=== PATIENT | male | born 1965 | race Caucasian/White ===

== ENCOUNTER 2017-10-12 09:35 | Observation (INO) | payer MEDICARE ==
[~2017-10-12] VITALS: Ht 180.3 cm; Wt 90.0 kg
[2017-10-12] VITALS (9 sets, daily range): BP systolic 105–171; BP diastolic 66–93; PULSE 58–120; RESP 16–32; TEMP 97.8–98.6; O2SAT 98–100
[~2017-10-12 09:35] MED LIST: DIAZ10TA PO; HYDR-3533 PO; IBUP400 PO; LEVA500T PO; MS C15TA7 PO; ZOLP10TA3 PO
[2017-10-12] MEDS ORDERED: SODIUM CHLORIDE 0.9% FLUSH 10 ML FLUSH IV FLUSH PRN ×2 (10:15→15:30)
[2017-10-12] MEDS ORDERED: LORazepam 2 MG/ML VIAL IV PUSH ONE (10:15)
[2017-10-12] MEDS ORDERED: SODIUM CHLOR 0.9% 1000 ML INJ 1,000 ML IV ONE ×2 (10:30→14:15)
--- NOTE | 2017-10-12 10:35 | RADRPT ---
EXAM DATE/TIME: 10/12/2017 10:20 [facility] COMPARISON: CHEST SINGLE AP, April 17, 2015, 11:40. INDICATIONS : Syncope. Altered mental status. MEDICAL HISTORY : Non-responsive. SURGICAL HISTORY : Non-responsive. ENCOUNTER: Initial ACUITY: 1 day PAIN SCORE: Non-responsive. LOCATION: Bilateral chest FINDINGS: A single view of the chest demonstrates the lungs to be hypoinflated with mild elevation of the right hemidiaphragm. Lungs are otherwise grossly clear. Accounting for the degree of inspiration, heart si ze is normal. Osseous structures are intact. CONCLUSION: No acute cardiopulmonary process. Jaron Quigley MD on October 12, 2017 at 10:31 Board Certified Radiologist. This report was verified electronically.
[2017-10-12 10:36] LABS: AUTOMATED NEUTROPHIL # 11.8 TH/MM3 (1.8-7.7); BASOPHIL % 0.2 % (0.0-2.0); EOSINOPHIL % 0.1 % (0.0-4.0); HEMATOCRIT 51.9 % (39.0-51.0); HEMOGLOBIN 17.1 GM/DL (13.0-17.0); LYMPH % 20.4 % (9.0-44.0); LYMPHOCYTE # 3.3 TH/MM3 (1.0-4.8); MEAN CELL VOLUME 88.1 FL (80.0-100.0); MEAN CORPUSCULAR HGB CONC 32.9 % (32.0-36.0); MEAN PLATELET VOLUME 9.1 FL (7.0-11.0); MONO % 7.2 % (0.0-8.0); MONOCYTE # 1.2 TH/MM3 (0-0.9); NEUT % 72.1 % (16.0-70.0); PLATELET COUNT 259 TH/MM3 (150-450); RED BLOOD COUNT 5.89 MIL/MM3 (4.50-5.90); RED CELL DISTRIBUTION WIDTH 13.5 % (11.6-17.2); WHITE BLOOD COUNT 16.3 TH/MM3 (4.0-11.0)
[2017-10-12 10:54] LABS: INTERNATIONAL NORMALIZED RATIO 1.1 RATIO; PROTHROMBIN TIME - PATIENT 11.2 SEC (9.8-11.6)
[2017-10-12 11:00] LABS: BACTERIA, URINE OCC /hpf; BLOOD, URINE TRACE (NEG); GLUCOSE,URINE TRACE mg/dL (NEG); HYALINE CAST, URINE 2 /lpf (RARE); KETONE, URINE 40 mg/dL (NEG); NITRITE,URINE NEG (NEG); SQUAMOUS EPITHELIAL CELL URINE 1 /hpf (0-5); URINE COLOR YELLOW (YELLW/STRAW); URINE LEUKOCYTE ESTERASE NEG (NEG)
--- NOTE | 2017-10-12 11:00 | RADRPT ---
EXAM DATE/TIME: 10/12/2017 10:43 [facility] COMPARISON: No previous studies available for comparison. INDICATIONS : Altered mental status. RADIATION DOSE: 52.13 CTDIvol (mGy) MEDICAL HISTORY : Seizures. SURGICAL HISTORY : None. ENCOUNTER: Initial ACUITY: 3 days PAIN SCALE: 0/10 LOCATION: cranial TECHNIQUE: Multiple contiguous axial images were obtained of the head. Using automated exposure control and adj ustment of the mA and/or kV according to patient size, radiation dose was kept as low as reasonably a chievable to obtain optimal diagnostic quality images. DICOM format image data is available electro nically for review and comparison. FINDINGS: CEREBRUM: The ventricles are normal for age. No evidence of midline shift, mass lesion, hemorrhage or acute in farction. No extra-axial fluid collections are seen. POSTERIOR FOSSA: The cerebellum and brainstem are intact. The 4th ventricle is midline. The cerebellopontine angle i s unremarkable. EXTRACRANIAL: The visualized portion of the orbits is intact. SKULL: The calvaria is intact. No evidence of skull fracture. CONCLUSION: Negative for acute process Xavier Sandoval MD FACR on October 12, 2017 at 10:57 Board Certified Radiologist. This report was verified electronically.
[2017-10-12 11:01] LABS: ALBUMIN 4.6 GM/DL (3.4-5.0); AST (GOT) 21 U/L (15-37); BICARBONATE 17.8 MEQ/L (21.0-32.0); BLOOD UREA NITROGEN 25 MG/DL (7-18); CALCIUM 9.3 MG/DL (8.5-10.1); CHLORIDE 102 MEQ/L (98-107); CREATININE 2.15 MG/DL (0.60-1.30); GLOMERULAR FILTRATION RATE 33 ML/MIN (>89); GLUCOSE,RANDOM 168 MG/DL (74-106); SODIUM (NA) 141 MEQ/L (136-145)
[2017-10-12 11:06] LABS: ALKALINE PHOSPHATASE 82 U/L (45-117); ALT (GPT) 41 U/L (12-78); TOTAL PROTEIN 8.1 GM/DL (6.4-8.2); TROPONIN I LESS THAN 0.02 NG/ML (0.02-0.05)
[2017-10-12 11:11] LABS: BILIRUBIN, URINE NEG (NEG)
[2017-10-12 11:18] LABS: ACETAMINOPHEN LESS THAN 2.0 MCG/ML (10.0-30.0)
--- NOTE | 2017-10-12 14:06 | PD ---
HPI Chief Complaint: Altered Mental Status Time Seen by Provider: 10:15 Travel History International Travel<30 days: No Contact w/Intl Traveler<30days: No Traveled to known affect area: No History of Present Illness HPI Patient was brought in by EMS secondary to altered mental status. states that he has been altered for the past couple days and he has a history of such per EMS. Upon my initial assessment patient was not talking. However, I am able to get history from the patient. States that he took morphine pills a couple of nights ago is also taking Valium and Xanax. States that for the past few days he has had problems sleeping and they have just changed his antidepressant medication. He denies fever, chills, nausea, vomiting, headache , neck pain, rash, chest pain, shortness of breath, abdominal pain. PFSH Past Medical History ADHD: Yes Bipolar Disorder: Yes Diminished Hearing: Yes (RIGHT EAR DEAF) Psychiatric: Yes (ADHD/ BIPOLAR) Respiratory: Yes (PE) Immunizations Current: No Seizures: Yes ?: Not Past Surgical History Genitourinary Surgery: Yes (PENILE SURGERY X - FOR CHRONIC PRIAPISM) Tonsillectomy: Yes Social History Alcohol Use: Yes (OCCASIONAL) Tobacco Use: Yes (1 PPD) Substance Use: No (unable to assess) Allergies-Medications (Allergen,Severity, Reaction): Coded Allergies: Iodinated Contrast- Oral and IV Dye (Unverified Allergy, Severe, RASH, ) gabapentin (Unverified Allergy, Severe, Seizures, 01/13/17) trazodone (Unverified Allergy, Severe, PRIAPRISM, 01/13/17) Reported Meds & Prescriptions Reported Meds & Active Scripts Active Motrin 400 mg Tab (Ibuprofen) 400 Mg Tab 400 Mg PO Q8 PRN Levaquin 500 Mg Tab (Levofloxacin) 500 Mg Tab 500 Mg PO DAILY Reported Ambien 10 Mg Tab (Zolpidem Tartrate) 10 Mg Tab 10 Mg PO HS Diazepam 10 mg (Diazepam) 10 Mg Tab 1 Tab PO TID Lortab 5 mg/325 mg (Hydrocodone/Acetaminophen 5 mg/325 mg) 1 Tab 1 Tab PO TID Ms Contin (Morphine Sulfate) 15 Mg Tab 15 Mg PO Q8H Review of Systems Except as stated in HPI: all other systems reviewed are Neg Physical Exam Narrative GENERAL: No acute distress. SKIN: Focused skin assessment warm/dry. HEAD: Atraumatic. Normocephalic. EYES: Pupils equal and round. Extra ocular muscles intact bilaterally. No scleral icterus. No injection or drainage. ENT: No nasal bleeding or discharge. Mucous membranes pink and moist. NECK: Trachea midline. No JVD. CARDIOVASCULAR: Regular rate and rhythm. No murmur appreciated. RESPIRATORY: No accessory muscle use. Clear to auscultation. Breath sounds equal bilaterally. GASTROINTESTINAL: Abdomen soft, non-tender, nondistended. Hepatic and splenic margins not palpable. MUSCULOSKELETAL: No obvious deformities. No clubbing. No cyanosis. No edema. NEUROLOGICAL: Awake and alert. No obvious cranial nerve deficits. Motor grossly within normal limits. Normal speech. Oriented to person and time, but not to place. PSYCHIATRIC: Pressured speech. Data Data Last Documented VS Vital Signs Date Time Temp Pulse Resp B/P (MAP) Pulse Ox O2 Delivery O2 Flow Rate FiO2 10/12/17 14:31 69 32 144/93 (110) 98 Room Air 10/12/17 11:24 2.00 10/12/17 10:01 98.2 Orders Orders Electrocardiogram (10/12/17 10:15) Complete Blood Count With Diff (10/12/17 10:15) Comprehensive Metabolic Panel (10/12/17 10:15) Creatine Kinase (Cpk) (10/12/17 10:15) Prothrombin Time / Inr (Pt) (10/12/17 10:15) Act Partial Throm Time (Ptt) (10/12/17 10:15) Troponin I (10/12/17 10:15) Urinalysis - C+S If Indicated (10/12/17 10:15) Chest, Single Ap (10/12/17 10:15) Ct Brain W/O Iv Contrast(Rout) (10/12/17 10:15) Ecg Monitoring (10/12/17 10:15) Iv Access Insert/Monitor (10/12/17 10:15) Oximetry (10/12/17 10:15) Sodium Chloride 0.9% Flush (Ns Flush) (10/12/17 10:15) Drug Screen, Random Urine (10/12/17 10:15) Alcohol (Ethanol) (10/12/17 10:15) Tylenol (Acetaminophen) (10/12/17 10:15) Salicylates (Aspirin) (10/12/17 10:15) Ckmb (Isoenzyme) Profile (10/12/17 10:15) Lorazepam Inj (Ativan Inj) (10/12/17 10:15) Sodium Chlor 0.9% 1000 Ml Inj (Ns 1000 M (10/12/17 10:30) Urine Culture (10/12/17 10:24) Lactic Acid (10/12/17 14:06) Sodium Chlor 0.9% 1000 Ml Inj (Ns 1000 M (10/12/17 14:15) Restraints Violent (10/12/17 14:06) Admit Order (Ed Use Only) (10/12/17 15:15) Labs Laboratory Tests Test 10/12/17 10:24 10/12/17 14:30 White Blood Count 16.3 TH/MM3 Red Blood Count 5.89 MIL/MM3 Hemoglobin 17.1 GM/DL Hematocrit 51.9 % Mean Corpuscular Volume 88.1 FL Mean Corpuscular Hemoglobin 29.0 PG Mean Corpuscular Hemoglobin Concent 32.9 % Red Cell Distribution Width 13.5 % Platelet Count 259 TH/MM3 Mean Platelet Volume 9.1 FL Neutrophils (%) (Auto) 72.1 % Lymphocytes (%) (Auto) 20.4 % Monocytes (%) (Auto) 7.2 % Eosinophils (%) (Auto) 0.1 % Basophils (%) (Auto) 0.2 % Neutrophils # (Auto) 11.8 TH/MM3 Lymphocytes # (Auto) 3.3 TH/MM3 Monocytes # (Auto) 1.2 TH/MM3 Eosinophils # (Auto) 0.0 TH/MM3 Basophils # (Auto) 0.0 TH/MM3 CBC Comment DIFF FINAL Differential Comment Prothrombin Time 11.2 SEC Prothromb Time International Ratio 1.1 RATIO Activated Partial Thromboplast Time 20.3 SEC Urine Color YELLOW Urine Turbidity HAZY Urine pH 6.0 Urine Specific [place] 1.030 Urine Protein 30 mg/dL Urine Glucose (UA) TRACE mg/dL Urine Ketones 40 mg/dL Urine Occult Blood TRACE Urine Nitrite NEG Urine Bilirubin NEG Urine Urobilinogen 2.0 MG/DL Urine Leukocyte Esterase NEG Urine RBC 1 /hpf Urine WBC 2 /hpf Urine Squamous Epithelial Cells 1 /hpf Urine Bacteria OCC /hpf Urine Hyaline Casts 2 /lpf Microscopic Urinalysis Comment CATH-CULTURE IND Blood Urea Nitrogen 25 MG/DL Creatinine 2.15 MG/DL Random Glucose 168 MG/DL Total Protein 8.1 GM/DL Albumin 4.6 GM/DL Calcium Level 9.3 MG/DL Alkaline Phosphatase 82 U/L Aspartate Amino Transf (AST/SGOT) 21 U/L Alanine Aminotransferase (ALT/SGPT) 41 U/L Total Bilirubin 1.0 MG/DL Sodium Level 141 MEQ/L Potassium Level 3.9 MEQ/L Chloride Level 102 MEQ/L Carbon Dioxide Level 17.8 MEQ/L Anion Gap 21 MEQ/L Estimat Glomerular Filtration Rate 33 ML/MIN Total Creatine Kinase 57 U/L Troponin I LESS THAN 0.02 NG/ML Salicylates Level 4.6 MG/DL Urine Opiates Screen POS Acetaminophen Level LESS THAN 2.0 MCG/ML Urine Barbiturates Screen NEG Urine Amphetamines Screen NEG Urine Benzodiazepines Screen NEG Urine Cocaine Screen NEG Urine Cannabinoids Screen POS Ethyl Alcohol Level LESS THAN 3 MG/DL Lactic Acid Level 1.6 mmol/L MDM Medical Decision Making Medical Screen Exam Complete: Yes Emergency Medical Condition: Yes Interpretation(s) Lab: Urine positive for bacteria culture pending; elevated white count; elevated BUN/creatinine/anion gap; decreased CO2 ECG: Sinus rhythm, rate 80, T-wave inversion in 3 and aVF Last Impressions Head CT 10/12/17 1015 Signed Impressions: Service Date/Time: Thursday, October 12, 2017 10:43 - CONCLUSION: Negative for acute process Xavier Sandoval MD FACR Chest X-Ray 10/12/17 1015 Signed Impressions: Service Date/Time: Thursday, October 12, 2017 10:20 - CONCLUSION: No acute cardiopulmonary process. Jaron Quigley MD Differential Diagnosis Drug/alcohol intoxication, intracranial abnormality, psychiatric disorder Narrative Course He presents to the emergency department with altered mental status. We will check head CT, chest x-ray, EKG, enzymes, UA, UDS, CBC, chemistry, salicylate, acetaminophen. 1500: bp 152/69, patient resting comfortably. Diagnosis Primary Impression: Altered mental status Qualified Codes: R41.82 - Altered mental status, unspecified Additional Impression: Renal failure Qualified Codes: N17.9 - Acute kidney failure, unspecified Admitting Information Admitting Physician Requests: Observation Condition: Stable Shira Cameron MD October 12, 2017 14:06
[2017-10-12] MEDS ORDERED: ONDANSETRON HCL 4 MG/2 ML VIAL IVP PRN (15:30)
[2017-10-12] MEDS ORDERED: ACETAMINOPHEN 325 MG TAB PO PRN (15:30)
[2017-10-12] MEDS ORDERED: NALOXONE HCL 0.4 MG/ML AMP IV PUSH PRN (15:30)
[2017-10-12] MEDS ORDERED: MAGNESIUM HYDROXIDE SUSP 30 ML CUP PO PRN (15:30)
[2017-10-12] MEDS ORDERED: ASPI-516 CHEW (15:35)
[2017-10-12] MEDS ORDERED: MORP1TAB24 PO (15:35)
[2017-10-12] MEDS ORDERED: HYDR-3288 PO (15:35)
[2017-10-12] MEDS ORDERED: METF1000 PO (15:35)
[2017-10-12] MEDS ORDERED: ALPR1TAB3 PO (15:35)
[2017-10-12] MEDS ORDERED: ROSU1TAB8 PO (15:35)
[2017-10-12] MEDS ORDERED: LOSA100T3 PO (15:35)
[2017-10-12] MEDS ORDERED: AMBI10TA PO (15:35)
[2017-10-12] MEDS ORDERED: ALPRAZolam 1 MG TAB PO PRN (15:45)
[2017-10-12] MEDS ORDERED: DEXTROSE 50% IN WATER 50 ML VIAL(D50) IV PUSH PRN (15:45)
[2017-10-12] MEDS ORDERED: GLUCAGON 1 MG/ML VIAL OTHER PRN (15:45)
[2017-10-12] MEDS ORDERED: ONDANSETRON ODT 4 MG TAB PO PRN (15:45)
[2017-10-12] MEDS ORDERED: SODIUM CHLOR 0.9% 1000 ML INJ 1,000 ML IV SCH (16:00)
--- NOTE | 2017-10-12 16:55 | HHI.HP ---
HPI Service CP Hospitalists Primary Care Physician Unknown Admission Diagnosis altered mental status, renal failure Chief Complaint: Patient does not know why he is here. AMS Travel History International Travel<30 Days: No Contact w/Intl Traveler <30 Da: No Traveled to Known Affected Are: No History of Present Illness Patient has a past medical history which includes: HTN, Hyperlipidemia, DM type 2, tobacco dependance, bipolar, priapism after taking Trazodone in 1996 s/p penile surgery x 19 and opioid dependance. Patient is a poor historian and is unable to tell us why he is here. Patient reports he has not been taking his morphine as prescribed. Patient reports he stopped taking morphine 1 weeks ago. Patient is prescribed Morphine ER 30 mg PO Q8H. Patient also reports he has not been taking his Alprazolam for the past few days. Information gathered from patient as well as review from prior charting. Patient able to provide his name correctly. Patient thinks he is in [facility] also unable to tell the correct date or year. Patient is unsure of how he got here. Patient reports he has been unable to sleep for the past 7 days. Patient c/o blood in urine. Patient endorses constipation. Patient has not been eating or drinking much for the past few days. Patient denies N/V, SOB, cough, congestion, chest pain, fevers, chills or dysuria. Review of Systems ROS Limitations: Clinical Condition, Altered Mental Status, Poor Historian Past Family Social History Past Medical History HTN, Hyperlipidemia, DM type 2, tobacco dependance, bipolar and opioid dependance Past Surgical History Penile surgery x 19 in the past Implanted intrathecal pain pump placement and removal Reported Medications Ambien (Zolpidem Tartrate) 10 Mg Tab 10 Mg PO HS PRN Rosuvastatin (Rosuvastatin Calcium) 20 Mg Tab 20 Mg PO DAILY Morphine ER (Morphine Sulfate) 15 Mg Tab 30 Mg PO Q8H, reports he has not taken in 1 week Metformin (Metformin HCl) 1,000 Mg Tab 1,000 Mg PO DAILY With a meal Losartan-Hydrochlorothiazide 100-12.5 Mg Tab 1 Tab PO DAILY [place] (Hydrocodone-Acetaminophen) 7.5-325 mg Tab 1 Tab PO Q6H PRN Aspirin 81 Mg Chew 81 Mg CHEW DAILY Alprazolam 1 Mg Tab 1 Mg PO Q6H PRN - reports he has not taking as prescribed, has not taken in 2-3 days Allergies: Coded Allergies: Iodinated Contrast- Oral and IV Dye (Unverified Allergy, Severe, RASH, ) gabapentin (Unverified Allergy, Severe, Seizures, 01/13/17) trazodone (Unverified Allergy, Severe, PRIAPRISM, 01/13/17) Family History Family history includes ADD Social History lives with his mother smokes 1/2 PPD Physical Exam Vital Signs Vital Signs Date Time Temp Pulse Resp B/P (MAP) Pulse Ox O2 Delivery O2 Flow Rate FiO2 10/12/17 15:37 21 10/12/17 14:31 69 32 144/93 (110) 98 Room Air 10/12/17 12:43 88 18 140/84 (102) 100 Room Air 10/12/17 11:24 97 18 135/77 (96) 100 Nasal Cannula 2.00 10/12/17 10:35 126 26 97 Room Air 10/12/17 10:34 94 18 105/66 (79) 98 Nasal Cannula 2.00 10/12/17 10:32 18 98 Nasal Cannula 2.00 10/12/17 10:01 98.2 120 30 98 Room Air Physical Exam GENERAL: This is a 51 year old male patient who appears confused with a flight of ideas SKIN: dry mucous membranes and dry skin. HEAD: abrasion right side of face EYES: Extraocular motions intact. No scleral icterus. No injection or drainage. CARDIOVASCULAR: Regular rate and rhythm RESPIRATORY: Clear to auscultation. Breath sounds equal bilaterally. No wheezes , rales, or rhonchi. GASTROINTESTINAL: Abdomen soft, non-tender, nondistended. No hepato-splenomegaly , or palpable masses. No guarding. MUSCULOSKELETAL: Extremities without clubbing, cyanosis, or edema. No joint tenderness, effusion, or edema noted. No calf tenderness. Negative Homans sign bilaterally. NEUROLOGICAL: Awake and alert. No focal deficits. Motor and sensory grossly within normal limits. Tangential speech Laboratory Laboratory Tests Test 10/12/17 10:24 10/12/17 14:30 White Blood Count 16.3 Red Blood Count 5.89 Hemoglobin 17.1 Hematocrit 51.9 Mean Corpuscular Volume 88.1 Mean Corpuscular Hemoglobin 29.0 Mean Corpuscular Hemoglobin Concent 32.9 Red Cell Distribution Width 13.5 Platelet Count 259 Mean Platelet Volume 9.1 Neutrophils (%) (Auto) 72.1 Lymphocytes (%) (Auto) 20.4 Monocytes (%) (Auto) 7.2 Eosinophils (%) (Auto) 0.1 Basophils (%) (Auto) 0.2 Neutrophils # (Auto) 11.8 Lymphocytes # (Auto) 3.3 Monocytes # (Auto) 1.2 Eosinophils # (Auto) 0.0 Basophils # (Auto) 0.0 CBC Comment DIFF FINAL Differential Comment Prothrombin Time 11.2 Prothromb Time International Ratio 1.1 Activated Partial Thromboplast Time 20.3 Urine Color YELLOW Urine Turbidity HAZY Urine pH 6.0 Urine Specific [place] 1.030 Urine Protein 30 Urine Glucose (UA) TRACE Urine Ketones 40 Urine Occult Blood TRACE Urine Nitrite NEG Urine Bilirubin NEG Urine Urobilinogen 2.0 Urine Leukocyte Esterase NEG Urine RBC 1 Urine WBC 2 Urine Squamous Epithelial Cells 1 Urine Bacteria OCC Urine Hyaline Casts 2 Microscopic Urinalysis Comment CATH-CULTURE IND Blood Urea Nitrogen 25 Creatinine 2.15 Random Glucose 168 Total Protein 8.1 Albumin 4.6 Calcium Level 9.3 Alkaline Phosphatase 82 Aspartate Amino Transf (AST/SGOT) 21 Alanine Aminotransferase (ALT/SGPT) 41 Total Bilirubin 1.0 Sodium Level 141 Potassium Level 3.9 Chloride Level 102 Carbon Dioxide Level 17.8 Anion Gap 21 Estimat Glomerular Filtration Rate 33 Total Creatine Kinase 57 Troponin I LESS THAN 0.02 Salicylates Level 4.6 Urine Opiates Screen POS Acetaminophen Level LESS THAN 2.0 Urine Barbiturates Screen NEG Urine Amphetamines Screen NEG Urine Benzodiazepines Screen NEG Urine Cocaine Screen NEG Urine Cannabinoids Screen POS Ethyl Alcohol Level LESS THAN 3 Lactic Acid Level 1.6 Date/Time Source Procedure Growth Status 10/12/17 10:24 Urine Catheterized Urine Urine Culture Pending Received Result Diagram: 10/12/17 1024 10/12/17 1024 Imaging Last Impressions Head CT 10/12/17 1015 Signed Impressions: Service Date/Time: Thursday, October 12, 2017 10:43 - CONCLUSION: Negative for acute process Xavier Sandoval MD FACR Chest X-Ray 10/12/17 1015 Signed Impressions: Service Date/Time: Thursday, October 12, 2017 10:20 - CONCLUSION: No acute cardiopulmonary process. MD Dania Ramirezi VTE Risk Assessment Rocio VTE Risk Assessment: No/Low Risk (score <= 1) Caprini Risk Assessment Model Point Value = 1 Point Value = 2 Point Value = 3 Point Value = 5 Age 41-60 Minor surgery BMI > 25 kg/m2 Swollen legs Varicose veins or History of unexplained or recurrent spontaneous Oral contraceptives or hormone replacement Sepsis (< 1 month) Serious lung disease, including pneumonia (< 1 month) Abnormal pulmonary function Acute myocardial infarction Congestive heart failure (< 1 month) History of inflammatory bowel disease Medical patient at bed rest Age 61-74 Arthroscopic surgery Major open surgery (> 45 min) Laparoscopic surgery (> 45 min) Malignancy Confined to bed (> 72 hours) Immobilizing plaster cast Central venous access Age >= 75 History of VTE Family history of VTE Factor V Leiden Prothrombin [id number] Lupus anticoagulant Anticardiolipin antibodies Elevated serum homocysteine Heparin-induced thrombocytopenia Other congenital or acquired thrombophilia Stroke (< 1 month) Elective arthroplasty Hip, pelvis, or leg fracture Acute spinal cord injury (< 1 month) Prophylaxis Regimen Total Risk Factor Score Risk Level Prophylaxis Regimen 0-1 Low Early ambulation 2 Moderate Order ONE of the following: *Sequential Compression Device (SCD) *Heparin 5000 units SQ BID 3-4 Higher Order ONE of the following medications: *Heparin 5000 units SQ TID *Enoxaparin/Lovenox 40 mg SQ daily (WT < 150 kg, CrCl > 30 mL/min) *Enoxaparin/Lovenox 30 mg SQ daily (WT < 150 kg, CrCl > 10-29 mL/min) *Enoxaparin/Lovenox 30 mg SQ BID (WT < 150 kg, CrCl > 30 mL/min) AND/OR *Sequential Compression Device (SCD) 5 or more Highest Order ONE of the following medications: *Heparin 5000 units SQ TID (Preferred with Epidurals) *Enoxaparin/Lovenox 40 mg SQ daily (WT < 150 kg, CrCl > 30 mL/min) *Enoxaparin/Lovenox 30 mg SQ daily (WT < 150 kg, CrCl > 10-29 mL/min) *Enoxaparin/Lovenox 30 mg SQ BID (WT < 150 kg, CrCl > 30 mL/min) AND *Sequential Compression Device (SCD) Assessment and Plan Problem List: (1) Altered mental status ICD Codes: R41.82 - Altered mental status, unspecified Status: Acute Plan: Altered mental status Patient has a past medical history which includes: HTN, Hyperlipidemia, DM type 2, tobacco dependance, bipolar, priapism after taking Trazodone in 1996 s/p penile surgery x 19 and opioid dependance. Patient is a poor historian and is unable to tell us why he is here. Patient reports he has not been taking his morphine as prescribed. Patient reports he stopped taking morphine 1 weeks ago. Patient is prescribed Morphine ER 30 mg PO Q8H. Patient also reports he has not been taking his Alprazolam for the past few days. Information gathered from patient as well as review from prior charting. Patient able to provide his name correctly. Patient thinks he is in [facility] also unable to tell the correct date or year. Patient is unsure of how he got here. Patient reports he has been unable to sleep for the past 7 days. Patient c/o blood in urine. Patient endorses constipation. Patient has not been eating or drinking much for the past few days. Patient denies N/V, SOB, cough, congestion, chest pain, fevers, chills or dysuria. Patient currently confused with tangental speech Patient reports he has not been taking his morphine as prescribed. Patient reports he stopped taking morphine 1 weeks ago. Patient is prescribed Morphine ER 30 mg PO Q8H. Patient also reports he has not been taking his Alprazolam for the past few days CT head: Negative for acute process Patient has abrasion on the right side of his face EEG Ativan as needed for seizure activity CXR : No acute cardiopulmonary disease Blood for Ammonia, B12, folate, Thiamin, RPR, TSH, free T4 continuous cardiac telemetry Consult psych Renal failure Patient endorses poor PO intake clinically dehydrated IVF Hold nephrotoxic agents ( hold metformin, Losartan and HCTZ) recheck BMP in AM Opioid dependence Patient prescribed Morphine 30 mg Po Q8H but reports he has not taken as prescribed. Patient reports he has not taken Morphine in 1 week Denies pain at this time Morphine ER 15 mg PO BID Diabetes mellitus Hold Metformin due to [place] diabetic diet Accu checks ACHS with SSI HTN (hypertension) hold Losartan and HCTZ do to [place] clonidine as needed Hyperlipidemia Continue patient's home Statin Bipolar disorder, unspecified Patient reports he has not been taking his medications as prescribed Consult psych for assistance DVT prophylaxis with SCDs (2) Renal failure ICD Codes: N19 - Unspecified kidney failure Status: Acute (3) Opioid dependence ICD Codes: F11.20 - Opioid dependence, uncomplicated (4) Diabetes mellitus ICD Codes: E11.9 - Type 2 diabetes mellitus without complications (5) HTN (hypertension) ICD Codes: I10 - Essential (primary) hypertension (6) Hyperlipidemia ICD Codes: E78.5 - Hyperlipidemia, unspecified (7) Bipolar disorder, unspecified ICD Codes: F31.9 - Bipolar disorder, unspecified Assessment and Plan Patient examined. Assessment and plan formulated with Jolene Wood PA-C. I agree with the above. Pt had period of loc. might have had a seizure. he admits to suddenly stopping his narcotics and benzos. uds neg for benzos. after given benzos in ED his agitation and combative nature stopped. he has some disorganized thinking. will ask psychiatry to visit him. will resume pain meds and anxiolytics at lower doses. He has [place] due poor po intake and vomiting. will give ivf and recheck. Problem Qualifiers (1) Altered mental status: Qualified Codes: R41.82 - Altered mental status, unspecified (2) Renal failure: Qualified Codes: N17.9 - Acute kidney failure, unspecified Jolene Wood October 12, 2017 16:55 Pedro Blandon MD October 12, 2017 21:40
[2017-10-12] MEDS: INSULIN ASPART SUPPLEMENTAL SCALE SQ SCH ×2 (17:00→21:00)
[2017-10-12] MEDS ORDERED: cloNIDine HCL 0.1 MG TAB PO PRN (17:15)
[2017-10-12] MEDS ORDERED: LORazepam 2 MG/ML VIAL IV PUSH PRN (17:15)
[2017-10-12] MEDS: MORPHINE SULFATE 15 MG CONTROLLED RELEASE TAB PO SCH (20:14)
[2017-10-12] MEDS: SODIUM CHLORIDE 0.9% FLUSH 10 ML FLUSH IV FLUSH SCH (20:15)
[2017-10-12] MEDS: DOCUSATE SODIUM 50 MG/SENNA 8.6 MG TAB PO SCH (20:15)
[2017-10-12 22:22] LABS: FOLATE GREATER THAN 20.0 NG/ML (3.1-17.5)
[2017-10-13 00:14] VITALS: BP 116/83; PULSE 64; RESP 16; TEMP 99; O2SAT 94
[2017-10-13 00:35] VITALS: PULSE 63
[2017-10-13 04:10] VITALS: BP 132/87; PULSE 56; PULSE 68; RESP 16; TEMP 98.5; O2SAT 97
[2017-10-13 07:06] LABS: AUTOMATED NEUTROPHIL # 6.9 TH/MM3 (1.8-7.7); BASOPHIL % 0.3 % (0.0-2.0); EOSINOPHIL # 0.1 TH/MM3 (0-0.4); EOSINOPHIL % 0.8 % (0.0-4.0); HEMATOCRIT 43.5 % (39.0-51.0); HEMOGLOBIN 14.6 GM/DL (13.0-17.0); LYMPH % 28.9 % (9.0-44.0); LYMPHOCYTE # 3.2 TH/MM3 (1.0-4.8); MEAN CELL VOLUME 86.8 FL (80.0-100.0); MEAN CORPUSCULAR HEMOGLOBIN 29.2 PG (27.0-34.0); MEAN CORPUSCULAR HGB CONC 33.6 % (32.0-36.0); MEAN PLATELET VOLUME 8.9 FL (7.0-11.0); MONO % 6.5 % (0.0-8.0); MONOCYTE # 0.7 TH/MM3 (0-0.9); NEUT % 63.5 % (16.0-70.0); PLATELET COUNT 185 TH/MM3 (150-450); RED BLOOD COUNT 5.02 MIL/MM3 (4.50-5.90); RED CELL DISTRIBUTION WIDTH 13.6 % (11.6-17.2); WHITE BLOOD COUNT 10.9 TH/MM3 (4.0-11.0)
[2017-10-13 07:19] VITALS: BP 135/75; PULSE 54; RESP 18; TEMP 98.3; O2SAT 96
[2017-10-13] MEDS: INSULIN ASPART SUPPLEMENTAL SCALE SQ SCH ×2 (07:58→12:00)
[2017-10-13 08:08] LABS: CREATININE 0.81 MG/DL (0.60-1.30)
[2017-10-13 08:09] LABS: BICARBONATE 21.7 MEQ/L (21.0-32.0); CALCIUM 7.7 MG/DL (8.5-10.1)
[2017-10-13] MEDS: SODIUM CHLORIDE 0.9% FLUSH 10 ML FLUSH IV FLUSH SCH (08:18)
[2017-10-13] MEDS: MORPHINE SULFATE 15 MG CONTROLLED RELEASE TAB PO SCH (08:19)
[2017-10-13] MEDS: DOCUSATE SODIUM 50 MG/SENNA 8.6 MG TAB PO SCH (08:19)
[2017-10-13] MEDS ORDERED: POTASSIUM CHLORIDE 20 MEQ CONTROLLED RELEASE TAB PO ONE (09:00)
[2017-10-13] MEDS ORDERED: ATORVASTATIN 40 MG TAB PO SCH (09:00)
[2017-10-13] MEDS ORDERED: ASPIRIN 81 MG CHEW TAB CHEW SCH (09:00)
--- NOTE | 2017-10-13 09:11 | HHI.PR ---
Subjective Remarks Patient A&O x 3 this AM offers no complaints asking when he will be able to go home Objective Vitals Vital Signs Date Time Temp Pulse Resp B/P (MAP) Pulse Ox O2 Delivery O2 Flow Rate FiO2 10/13/17 07:19 98.3 54 18 135/75 (95) 96 10/13/17 04:10 98.5 68 16 132/87 (102) 97 10/13/17 04:10 56 10/13/17 00:35 63 10/13/17 00:14 99.0 64 16 116/83 (94) 94 10/12/17 20:07 58 10/12/17 20:03 98.6 64 16 171/92 (118) 98 10/12/17 19:41 21 10/12/17 17:12 97.8 66 16 145/93 (110) 98 10/12/17 16:35 (110) 2.00 21 10/12/17 16:21 (110) 2.00 21 10/12/17 15:37 21 10/12/17 14:31 69 32 144/93 (110) 98 Room Air 10/12/17 12:43 88 18 140/84 (102) 100 Room Air 10/12/17 11:24 97 18 135/77 (96) 100 Nasal Cannula 2.00 10/12/17 10:35 126 26 97 Room Air 10/12/17 10:34 94 18 105/66 (79) 98 Nasal Cannula 2.00 10/12/17 10:32 18 98 Nasal Cannula 2.00 10/12/17 10:01 98.2 120 30 98 Room Air Result Diagram: 10/13/17 0600 10/13/17 0600 Other Results Laboratory Tests Test 10/12/17 10:24 10/12/17 14:30 10/12/17 22:15 10/13/17 06:00 White Blood Count 16.3 TH/MM3 10.9 TH/MM3 Red Blood Count 5.89 MIL/MM3 5.02 MIL/MM3 Hemoglobin 17.1 GM/DL 14.6 GM/DL Hematocrit 51.9 % 43.5 % Mean Corpuscular Volume 88.1 FL 86.8 FL Mean Corpuscular Hemoglobin 29.0 PG 29.2 PG Mean Corpuscular Hemoglobin Concent 32.9 % 33.6 % Red Cell Distribution Width 13.5 % 13.6 % Platelet Count 259 TH/MM3 185 TH/MM3 Mean Platelet Volume 9.1 FL 8.9 FL Neutrophils (%) (Auto) 72.1 % 63.5 % Lymphocytes (%) (Auto) 20.4 % 28.9 % Monocytes (%) (Auto) 7.2 % 6.5 % Eosinophils (%) (Auto) 0.1 % 0.8 % Basophils (%) (Auto) 0.2 % 0.3 % Neutrophils # (Auto) 11.8 TH/MM3 6.9 TH/MM3 Lymphocytes # (Auto) 3.3 TH/MM3 3.2 TH/MM3 Monocytes # (Auto) 1.2 TH/MM3 0.7 TH/MM3 Eosinophils # (Auto) 0.0 TH/MM3 0.1 TH/MM3 Basophils # (Auto) 0.0 TH/MM3 0.0 TH/MM3 CBC Comment DIFF FINAL DIFF FINAL Differential Comment Prothrombin Time 11.2 SEC Prothromb Time International Ratio 1.1 RATIO Activated Partial Thromboplast Time 20.3 SEC Urine Color YELLOW Urine Turbidity HAZY Urine pH 6.0 Urine Specific [place] 1.030 Urine Protein 30 mg/dL Urine Glucose (UA) TRACE mg/dL Urine Ketones 40 mg/dL Urine Occult Blood TRACE Urine Nitrite NEG Urine Bilirubin NEG Urine Urobilinogen 2.0 MG/DL Urine Leukocyte Esterase NEG Urine RBC 1 /hpf Urine WBC 2 /hpf Urine Squamous Epithelial Cells 1 /hpf Urine Bacteria OCC /hpf Urine Hyaline Casts 2 /lpf Microscopic Urinalysis Comment CATH-CULTURE IND Blood Urea Nitrogen 25 MG/DL 23 MG/DL Creatinine 2.15 MG/DL 0.81 MG/DL Random Glucose 168 MG/DL 123 MG/DL Total Protein 8.1 GM/DL Albumin 4.6 GM/DL Calcium Level 9.3 MG/DL 7.7 MG/DL Alkaline Phosphatase 82 U/L Aspartate Amino Transf (AST/SGOT) 21 U/L Alanine Aminotransferase (ALT/SGPT) 41 U/L Total Bilirubin 1.0 MG/DL Sodium Level 141 MEQ/L 142 MEQ/L Potassium Level 3.9 MEQ/L 3.0 MEQ/L Chloride Level 102 MEQ/L 110 MEQ/L Carbon Dioxide Level 17.8 MEQ/L 21.7 MEQ/L Anion Gap 21 MEQ/L 10 MEQ/L Estimat Glomerular Filtration Rate 33 ML/MIN 100 ML/MIN Total Creatine Kinase 57 U/L Troponin I LESS THAN 0.02 NG/ML Vitamin B12 Level 384 PG/ML Folate GREATER THAN 20.0 NG/ML Free Thyroxine 1.40 NG/DL Thyroid Stimulating Hormone 3rd Gen 3.920 uIU/ML Salicylates Level 4.6 MG/DL Urine Opiates Screen POS Acetaminophen Level LESS THAN 2.0 MCG/ML Urine Barbiturates Screen NEG Urine Amphetamines Screen NEG Urine Benzodiazepines Screen NEG Urine Cocaine Screen NEG Urine Cannabinoids Screen POS Ethyl Alcohol Level LESS THAN 3 MG/DL Lactic Acid Level 1.6 mmol/L Ammonia 32 MCMOL/L Imaging Last Impressions Head CT 10/12/17 1015 Signed Impressions: Service Date/Time: Thursday, October 12, 2017 10:43 - CONCLUSION: Negative for acute process Xavier Sandoval MD FACR Chest X-Ray 10/12/17 1015 Signed Impressions: Service Date/Time: Thursday, October 12, 2017 10:20 - CONCLUSION: No acute cardiopulmonary process. Jaron Quigley MD Objective Remarks GENERAL: This is a well-nourished, well-developed patient, in no apparent distress. CARDIOVASCULAR: Regular rate and rhythm RESPIRATORY: Clear to auscultation. Breath sounds equal bilaterally. GASTROINTESTINAL: Abdomen soft, non-tender, nondistended. Normal active bowel sounds MUSCULOSKELETAL: Extremities without clubbing, cyanosis, or edema. NEURO: Alert & Oriented. Moves all ext x4 A/P Problem List: (1) Altered mental status ICD Codes: R41.82 - Altered mental status, unspecified Status: Acute Plan: Altered mental status- improved AMS likely secondary to withdraw from Morphine and Xanax - improved Patient has a past medical history which includes: HTN, Hyperlipidemia, DM type 2, tobacco dependance, bipolar, priapism after taking Trazodone in 1996 s/p penile surgery x 19 and opioid dependance. Patient is a poor historian and is unable to tell us why he is here. Patient reports he has not been taking his morphine as prescribed. Patient reports he stopped taking morphine 1 weeks ago. Patient is prescribed Morphine ER 30 mg PO Q8H. Patient also reports he has not been taking his Alprazolam for the past few days. Information gathered from patient as well as review from prior charting. Patient able to provide his name correctly. Patient thinks he is in [facility] also unable to tell the correct date or year. Patient is unsure of how he got here. Patient reports he has been unable to sleep for the past 7 days. Patient c/o blood in urine. Patient endorses constipation. Patient has not been eating or drinking much for the past few days. Patient denies N/V, SOB, cough, congestion, chest pain, fevers, chills or dysuria. 10/12 Patient currently confused with tangental speech Patient reports he has not been taking his morphine as prescribed. Patient reports he stopped taking morphine 1 weeks ago. Patient is prescribed Morphine ER 30 mg PO Q8H. Patient also reports he has not been taking his Alprazolam for the past few days CT head: Negative for acute process Patient has abrasion on the right side of his face EEG pending Ativan as needed for seizure activity CXR : No acute cardiopulmonary disease Ammonia 32, B12 384, folate >20, RPR pending, TSH3.92, free T4 1.40 continuous cardiac telemetry reviewed bradycardia down to 48 bpm through the night, no other arrhythmias noted Consult psych, appreciate input- cleared for DC recommend outpatient follow up Renal failure- resolved Patient endorses poor PO intake clinically dehydrated On admission BUN 25, creatinine 2.15, GFR 33 5/15 BUN 23, creatinine 0.81, GFR 100 IVF Dc'd Hold nephrotoxic agents ( hold metformin, Losartan and HCTZ) Opioid dependence Patient prescribed Morphine 30 mg Po Q8H but reports he has not taken as prescribed. Patient reports he has not taken Morphine in 1 week Denies pain at this time Morphine ER 15 mg PO BID Diabetes mellitus Hold Metformin due to [place] diabetic diet Accu checks ACHS with SSI HTN (hypertension) hold Losartan and HCTZ do to [place] clonidine as needed Hyperlipidemia Continue patient's home Statin Bipolar disorder, unspecified Patient reports he has not been taking his medications as prescribed Consult psych for assistance DVT prophylaxis with SCDs Patient mental status improved DC home in stable condition on a diabetic diet with no activity restrictions. Hold patient's home Losartan as he ahs not been receiving this in the hospital and BP stable Patient to follow up with PCP in 1 week Discussed case with [facility] CM request patient be enrolled with complex case management for assistance after DC. (2) Renal failure ICD Codes: N19 - Unspecified kidney failure Status: Acute (3) Opioid dependence ICD Codes: F11.20 - Opioid dependence, uncomplicated (4) Diabetes mellitus ICD Codes: E11.9 - Type 2 diabetes mellitus without complications (5) HTN (hypertension) ICD Codes: I10 - Essential (primary) hypertension (6) Hyperlipidemia ICD Codes: E78.5 - Hyperlipidemia, unspecified (7) Bipolar disorder, unspecified ICD Codes: F31.9 - Bipolar disorder, unspecified Assessment and Plan Patient examined. Assessment and plan formulated with Jolene Wood PA-C. I agree with the above. Pt has much improved thought process and organized thoughts. I think his mental status change/agitation and ?sz were all due to abruptly stopping the benzos. He also stopped his chronic narcs then resumed.. will go home with his mother. Problem Qualifiers (1) Altered mental status: Qualified Codes: R41.82 - Altered mental status, unspecified (2) Renal failure: Qualified Codes: N17.9 - Acute kidney failure, unspecified Jolene Wood October 13, 2017 09:11 Pedro Blandon MD October 13, 2017 17:39
--- NOTE | 2017-10-13 09:52 | EKG ---
Date Performed: 10/12/2017 Time Performed: 11:16:45 PTAGE: 51 years EKG: Sinus rhythm NORMAL ECG Compared to PREVIOUS TRACING , the patient is no longer tachycardic. PREVIOUS TRACIN04/17/2015 11. 21 DOCTOR: Beata Gotti Interpretating Date/Time 10/13/2017 09:51:37
[2017-10-13 11:36] VITALS: BP 138/88; PULSE 67; RESP 18; TEMP 98.7; O2SAT 95
--- NOTE | 2017-10-13 12:22 | PD.PSY.CON ---
Provisional Diagnosis Admission Date October 12, 2017 at 15:17 [place] I. Unspecified psychosis, r/o benzodiazepines withdrawal induced psychosis, bipolar disorder, benzodiazepine and opiates dependence [place] II. Deferred [place] III. Hypertension, renal failure, diabetes, [place] IV. Poor social and family support [place] V. 55 History of Present Illness Service Psychiatry Consult Requested By ER Reason for Consult Psychosis Primary Care Physician Unknown HPI The patient is a 51-year-old man, domiciled with his mother in [place], single, no kids, unemployed, supported by [facility], with psychiatric history of bipolar disorder, benzodiazepine and opiates dependence, priapism after taking Trazodone in 1996 s/p penile surgery x 19, multiple psychiatric hospitalizations, suicide attempts, he has outpatient psychiatric care by Dr. Morfin, he is on Xanax 1 mg 3 times daily, Valium 10 mg, olanzapine 20 mg at bedtime, Ambien 10 mg at bedtime, medical history of diabetes, "Patient was initially historian and is unable to tell us why he was here. Patient reports he has not been taking his morphine as prescribed. Patient reports he stopped taking morphine 1 weeks ago. Patient is prescribed Morphine ER 30 mg PO Q8H. Patient also reports he has not been taking his Alprazolam for the past few days. Information gathered from patient as well as review from prior charting. Patient able to provide his name correctly. Patient thinks he is in [facility] also unable to tell the correct date or year. Patient is unsure of how he got here. Patient reports he has been unable to sleep for the past 7 days. Patient c/o blood in urine. Patient endorses constipation. Patient has not been eating or drinking much for the past few days. Patient denies N/V, SOB, cough, congestion, chest pain, fevers, chills or dysuria". The patient was consulted to psychiatry due to disorganized thought process and confusion. EMR was reviewed. Case was widely discussed with primary ER team. On psychiatric evaluation patient is calm, cooperative and pleasant. The patient is fully oriented 3 at the moment. He says that he feels much better, denies distress, denies pain, reports a good mood. Patient reports that he does not really know the reason he is in the hospital. He says that he became quite confused he does not remember the details of his hospitalization. He does says that he has not been taking his medications, Xanax and Valium for about a week now "that could affect me", but he seems to be at baseline now. He denies suicidal enemas ideation, he denies visual and auditory hallucinations. She is logical, coherent and relevant. He denies the use of illegal drugs and alcohol. Review of Systems Constitutional: DENIES: Diaphoretic episodes, Fatigue, Fever, Weight gain, Weight loss, Chills, Dizziness, Change in appetite, Night Sweats Endocrine: DENIES: Heat/cold intolerance, Polydipsia, Polyuria, Polyphagia Eyes: DENIES: Blurred vision, Diplopia, Eye inflammation, Eye pain, Vision loss , Photosensitivity, Double Vision Ears, nose, mouth, throat: DENIES: Tinnitus, Hearing loss, Vertigo, Nasal discharge, Oral lesions, Throat pain, Hoarseness, Ear Pain, Running Nose, Epistaxis, Sinus Pain, Toothache, Odynophagia Respiratory: DENIES: Apneas, Cough, Snoring, Wheezing, Hemoptysis, Sputum production, Shortness of breath Cardiovascular: DENIES: Chest pain, Palpitations, Syncope, Dyspnea on Exertion , PND, Lower Extremity Edema, Orthopnea, Claudication Gastrointestinal: DENIES: Abdominal pain, Black stools, Bloody stools, Constipation, Diarrhea, Nausea, Vomiting, Difficulty Swallowing, Anorexia Genitourinary: DENIES: Sexual dysfunction, Urinary frequency, Urinary incontinence, Urgency, Hematuria, Dysuria, Nocturia, Penile Discharge, Testicular Pain, Testicular Swelling Musculoskeletal: DENIES: Joint pain, Muscle aches, Stiffness, Joint Swelling, Back pain, Neck pain Integumentary: DENIES: Abnormal pigmentation, Nail changes, Pruritus, Rash Hematologic/lymphatic: DENIES: Bruising, Lymphadenopathy Immunologic/allergic: DENIES: Eczema, Urticaria Neurologic: DENIES: Abnormal gait, Headache, Localized weakness, Paresthesias, Seizures, Speech Problems, Tremor, Poor Balance Psychiatric: DENIES: Anxiety, Confusion, Mood changes, Depression, Hallucinations, Agitation, Suicidal Ideation, Homicidal Ideation, Delusions Past Family Social History Coded Allergies: Iodinated Contrast- Oral and IV Dye (Unverified Allergy, Severe, RASH, ) gabapentin (Unverified Allergy, Severe, Seizures, 01/13/17) trazodone (Unverified Allergy, Severe, PRIAPRISM, 01/13/17) Reported Medications Zolpidem (Ambien) 10 Mg Tab, 10 MG PO HS Y for INSOMNIA, TAB 0 Refills 10/12/17 Rosuvastatin (Rosuvastatin) 20 Mg Tab, 20 MG PO DAILY for Cholesterol Management , #30 TAB 0 Refills 10/12/17 Morphine ER (Morphine ER) 15 Mg Tab, 30 MG PO Q8H for Pain Management, TAB 0 Refills 10/12/17 Metformin (Metformin) 1,000 Mg Tab, 1000 MG PO DAILY for Blood Sugar Management , #30 TAB 0 Refills With a meal 10/12/17 Losartan-Hydrochlorothiazide (Losartan-Hydrochlorothiazide) 100-12.5 Mg Tab, 1 TAB PO DAILY for Blood Pressure Management, #30 TAB 0 Refills 10/12/17 Hydrocodone-Acetaminophen ([place]) 7.5-325 mg Tab, 1 TAB PO Q6H Y for PAIN, TAB 0 Refills 10/12/17 Aspirin (Aspirin) 81 Mg Chew, 81 MG CHEW DAILY, TAB 0 Refills 10/12/17 Alprazolam (Alprazolam) 1 Mg Tab, 1 MG PO Q6H Y for ANXIETY, TAB 0 Refills 10/12/17 Discontinued Reported Medications Zolpidem Tartrate (Ambien 10 Mg Tab) 10 Mg Tab, 10 MG PO HS, TAB 04/17/15 Diazepam 10 mg (Diazepam 10 mg) 10 Mg Tab, 1 TAB PO TID, TAB 11/11/14 Hydrocodone/Acetaminophen 5 mg/325 mg (Lortab 5 mg/325 mg) 1 Tab, 1 TAB PO TID for PAIN, TAB 11/11/14 Morphine Sulfate (Ms Contin) 15 Mg Tab, 15 MG PO Q8H, TAB 11/11/14 Discontinued Scripts Ibuprofen (Motrin 400 mg Tab) 400 Mg Tab, 400 MG PO Q8 Y for PAIN, #21 TAB 1 Refill Prov:Gary Farah MD 04/23/15 Levofloxacin (Levaquin 500 Mg Tab) 500 Mg Tab, 500 MG PO DAILY, #10 TAB Prov:Stephanie Alvarez MD 04/17/15 Current Medications Medications (Trade) Dose Ordered Sig/Jagdish Route Start Time Stop Time Status Last Admin (NS Flush) 2 ml UNSCH PRN IV FLUSH 10/12/17 15:30 (NS Flush) 2 ml BID IV FLUSH 10/12/17 21:00 10/13/17 08:18 (Tylenol) 650 mg Q4H PRN PO 10/12/17 15:30 (Narcan Inj) 0.4 mg UNSCH PRN IV PUSH 10/12/17 15:30 (Temi-Colace) 1 tab BID PO 10/12/17 21:00 10/12/17 20:15 (Milk Of Magnesia Liq) 30 ml Q12H PRN PO 10/12/17 15:30 (Aspirin Chew) 81 mg DAILY CHEW 10/13/17 09:00 10/13/17 08:18 (Lipitor) 40 mg DAILY PO 10/13/17 09:00 10/13/17 08:18 (D50w (Vial) Inj) 50 ml UNSCH PRN IV PUSH 10/12/17 15:45 (Glucagon Inj) 1 mg UNSCH PRN OTHER 10/12/17 15:45 (NovoLOG SUPPLEMENTAL SCALE) 1 ACHS SLIDING SCALE SQ 10/12/17 17:00 (Zofran Odt) 4 mg Q6H PRN PO 10/12/17 15:45 (Oramorph Sr) 15 mg Q12HR PO 10/12/17 21:00 10/13/17 08:19 (Ativan Inj) 1 mg Q2H PRN IV PUSH 10/12/17 17:15 (Catapres) 0.1 mg Q6H PRN PO 10/12/17 17:15 10/12/17 20:15 Family Psych History No family psychiatric history Social History Patient was born and raised in [place], he lives in [place] with his mother, his single, he has no kids, is unemployed, supported by [employer], he has some college credits. Patient's Strengths (min. 2) Patient has outpatient psychiatric care Physical Exam No tremors, no EPS, no withdrawal symptoms, no psychomotor retardation or agitation, no gait disturbance Vital Signs Vital Signs Date Time Temp Pulse Resp B/P (MAP) Pulse Ox O2 Delivery O2 Flow Rate FiO2 10/13/17 11:36 98.7 67 18 138/88 (105) 95 10/12/17 19:41 21 10/12/17 16:35 2.00 10/12/17 14:31 Room Air I/O 10/13/17 10/13/17 10/14/17 08:00 16:00 00:00 Intake Total 1000 ml Balance 1000 ml Lab Results Test 10/12/17 14:30 10/12/17 22:15 10/13/17 06:00 Lactic Acid Level 1.6 mmol/L Ammonia 32 MCMOL/L Rapid Plasma Reagin NON-REACTIVE White Blood Count 10.9 TH/MM3 Red Blood Count 5.02 MIL/MM3 Hemoglobin 14.6 GM/DL Hematocrit 43.5 % Mean Corpuscular Volume 86.8 FL Mean Corpuscular Hemoglobin 29.2 PG Mean Corpuscular Hemoglobin Concent 33.6 % Red Cell Distribution Width 13.6 % Platelet Count 185 TH/MM3 Mean Platelet Volume 8.9 FL Neutrophils (%) (Auto) 63.5 % Lymphocytes (%) (Auto) 28.9 % Monocytes (%) (Auto) 6.5 % Eosinophils (%) (Auto) 0.8 % Basophils (%) (Auto) 0.3 % Neutrophils # (Auto) 6.9 TH/MM3 Lymphocytes # (Auto) 3.2 TH/MM3 Monocytes # (Auto) 0.7 TH/MM3 Eosinophils # (Auto) 0.1 TH/MM3 Basophils # (Auto) 0.0 TH/MM3 CBC Comment DIFF FINAL Differential Comment Blood Urea Nitrogen 23 MG/DL Creatinine 0.81 MG/DL Random Glucose 123 MG/DL Calcium Level 7.7 MG/DL Sodium Level 142 MEQ/L Potassium Level 3.0 MEQ/L Chloride Level 110 MEQ/L Carbon Dioxide Level 21.7 MEQ/L Anion Gap 10 MEQ/L Estimat Glomerular Filtration Rate 100 ML/MIN Magnesium Level 2.3 MG/DL Date/Time Source Procedure Growth Status 10/12/17 10:24 Urine Catheterized Urine Urine Culture Pending Received Mental Status Examination Appearance: Appropriate Consciousness: Alert Orientation: x4 Motor Activity: Normal gait Speech: Unremarkable Language: Adequate Fund of Knowledge: Adequate Attention and Concentration: Adequate Memory: Unremarkable Mood: Appropriate Affect: Appropriate Thought Process & Associations: Intact Thought Content: Appropriate Hallucination Type: None Delusion Type: None Suicidal Ideation: No Suicidal Plan: No Suicidal Intention: No Homicidal Ideation: No Homicidal Plan: No Homicidal Intention: No Insight: Adequate Judgment: Adequate Assessment & Plan Problem List: (1) Bipolar disorder, unspecified ICD Codes: F31.9 - Bipolar disorder, unspecified Assessment & Plan: On psychiatric evaluation today the patient does not present any concerning, acute or significant neuropsychiatric symptoms that require an immediate psychiatric intervention. The patient denies symptomatology of depression, anxiety, medardo or psychosis. The patient denies suicidal enemas ideation, he denies visual and auditory hallucinations. Patient is calm, cooperative, logical coherent and relevant. Oriented 3. Patient admits that he has been missing doses of benzodiazepines and opiates lately. It seems to me that current presentation of psychotic thought process and behavior, disorientation, was most probably the result of benzodiazepines withdrawal. Continue CIWA. The patient is widely educated about the importance of taking medications as prescribed to avoid dependence and addiction. Continue his olanzapine 10 mg at bedtime. He does not meet criteria for involuntary psychiatric admission. He will continue psychiatric care with outpatient psychiatrist. Assessment & Plan Estimated LOS: Adalid Clark MD October 13, 2017 12:22
[2017-10-13] MEDS ORDERED: OLAN10TA PO (13:39)
--- NOTE | 2017-10-13 20:54 | MG ---
cc: Tano Morse MD, Mandeep MD EEG RECORD [id number] A 6-8 Hz posterior rhythm, 20-50 microvolts. Mixed frequency. Asynchronous EEG and frontal myogenic artifact occurring. Vertical eye movement artifact produced driving with photic stimulation. Single lead EKG showing sinus rhythm. INTERPRETATION: Minimal encephalopathy, myogenic artifact. No epileptic activity. Clinical correlation. MD BO Angeles/ , 08:42 PM , 08:54 PM
[2017-10-14] MEDS ORDERED: OLANZapine 10 MG TAB PO SCH (09:00)
== END 2017-10-13 15:30 | disposition home or self-care (01) ==
LOC: NEPE 09:35 → NEDA 15:17 → NEPFCDU 16:24
PROVIDERS: ADMIT Hospitalist; ATTEND Hospitalist
DX: R41.82 Altered mental status, unspecified (principal); E86.0 Dehydration; F11.20 Opioid dependence, uncomplicated; F29 Unspecified psychosis not due to a substance or known physiological condition; G93.40 Encephalopathy, unspecified; R31.9 Hematuria, unspecified; K59.00 Constipation, unspecified; E11.9 Type 2 diabetes mellitus without complications; N17.9 Acute kidney failure, unspecified; I10 Essential (primary) hypertension; E78.5 Hyperlipidemia, unspecified; F31.9 Bipolar disorder, unspecified; F17.200 Nicotine dependence, unspecified, uncomplicated; Z79.899 Other long term (current) drug therapy; Z79.82 Long term (current) use of aspirin; Z79.84 Long term (current) use of oral hypoglycemic drugs; Z91.14 Patient's other noncompliance with medication regimen
CPT/HCPCS: 70450; 71045; 80048; 80053; 80307; 81001; 82140; 82550; 82607; 82746; 82948; 83605; 83735; 84439; 84443; 84484; 85025; 85610; 85730; 86592; 87086; 93005; 95819; 96361; 96374; 97161; 99285; G0378; G8987; G8988; G8989; J2060; J7030